=== PATIENT | male | born 1975 | race Hispanic/Latino ===

== ENCOUNTER 2017-07-23 06:05 | Emergency (ER) | payer SELFPAY ==
[2017-07-23] MEDS ORDERED: MORPHINE 4 MG/ML SYR ONE (06:35)
[2017-07-23] MEDS ORDERED: ONDANSETRON 4 MG/2 ML VIAL ONE (06:36)
[2017-07-23 06:46] LABS: Urine Blood NEGATIVE (NEG); Urine Glucose NEGATIVE (NEG); Urine Protein NEGATIVE (NEG)
[2017-07-23 06:48] LABS: Absolute Lymphocytes (CBC) 2.4 K/uL (0.7-4.9); Absolute Monocytes 0.9 K/uL (0.1-1.3); Absolute Neutrophil 5.2 K/uL (1.8-8.0); Basophils % 0.3 % (0-1.3); Eosinophils % 1.6 % (0-4.4); Lymphocytes % 28.1 % (15.3-44.8); MCH 30.9 pg (27.0-35.0); MCV 90.7 fL (80-100); MPV 6.7 fL (7.6-11.3); Monocytes % 10.1 % (3.3-12.3); RBC Red Blood Cell Count 5.18 M/uL (4.33-5.43)
[2017-07-23 07:00] LABS: Potassium 3.9 mEq/L (3.6-5.0)
[2017-07-23 07:06] LABS: Albumin 4.2 g/dL (3.2-5.5); Bilirubin Direct 0.1 mg/dL (0-0.2); Bilirubin Total 0.7 mg/dL (0.3-1.2); Protein, Total 8.2 g/dL (6.0-8.3)
--- NOTE | 2017-07-23 07:13 | RAD REPORT ---
EXAM DESCRIPTION: CT - Stone Protocol - 07/23/2017 6:48 am CLINICAL HISTORY: Bilateral back pain and flank pain. No preliminary report available at the time of this dictation. . COMPARISON: None. TECHNIQUE: Axial 5 mm thick images were obtained without oral or IV contrast. The [id number] span s the entirety of the system partially obscuring uppermost abdomen and lung bases. All CT scans are performed using dose optimization technique as appropriate and may include automated exposure control or mA/KV adjustment according to patient size. FINDINGS: No hydronephrosis of either kidney. No obstructing or nonobstructing calculi. No perinephr ic stranding is seen. No suspicious renal masses. Isodense masses and pyelonephritis are not excluded on a stone protocol CT scan. No urinary bladder suspicious finding. Prostate gland and seminal vesic les within normal limits. Imaged portions of the liver, spleen and pancreas show no suspicious findings on non-contrast imaging . No gallbladder or biliary tree abnormality identified. No significant adrenal finding. No gastric dilatation or wall thickening. No acute small bowel process seen. There is fecalized bowel content in the terminal ileum and in some distal small bowel loops. A large amount of stool is prese nt filling but not dilating the right-side of the colon. No acute colon process is identifiable. No m easurable diverticulosis. The abrupt transition between normal diameter and decompressed sigmoid colo n is believed to be a peristalsis artifact. A discrete mass is not seen at this site. No hernia, mass or bulky lymphadenopathy noted. No free air, free fluid or inflammatory stranding. No significant bony abnormality. Scarring and atelectasis changes are present in the lung bases. No pericardial effusion. IMPRESSION: No hydronephrosis, obstructing calculus or acute finding. Isodense masses and pyelonephritis are not excluded on stone protocol technique. Large amount of stool is present filling but not dilating the right-side of the colon. Fecalized dexter l content in the terminal ileum. This has a constipation appearance with no obstructing mass identifi ed. Full colon assessment is limited.
[2017-07-23 07:27] LABS: Urine Bacteria NONE SEEN /HPF (NONE SEEN); Urine Culture Reflex Order NOT NEEDED; Urine RBC <5 /HPF (NONE SEEN)
[2017-07-23] MEDS ORDERED: MAGNESIUM CITRATE 300 ML BOT ONE (07:32)
--- NOTE | 2017-07-23 07:56 | ER ---
Nurse's Notes [facility] Name: Arron Andujar Age: 41 yrs Sex: Male : 1975 Arrival Date: 07/23/2017 Time: 06:06 Bed 16 Private MD: Diagnosis: Low back pain;Constipation, unspecified Presentation: 07/23 06:17 Presenting complaint: Patient states: he is having back pain for approx 2 weeks which bb now is radiating to abdomen, pt has not had a bowel movement in 4 to 5 days also has hesitancy when urinating. Transition of care: patient was not received from another setting of care. Onset of symptoms was July 09, 2017. Initial Sepsis Screen: Does the patient meet any 2 criteria? No. Patient's initial sepsis screen is negative. Does the patient have a suspected source of infection? No. Patient's initial sepsis screen is negative. Care prior to arrival: None. 06:17 Method Of Arrival: Ambulatory bb 06:17 Acuity: MAGNO 3 bb Historical: - Allergies: 06:21 No Known Allergies; bb - Home Meds: 06:21 Ultracet Oral [Active]; bb - PMHx: 06:21 None; bb - PSHx: 06:21 Knee surgery; bb - Immunization history:: Adult Immunizations up to date. - Social history:: Smoking status: Patient/guardian denies using tobacco, Patient uses alcohol, occasionally. Patient/guardian denies using street drugs. Screenin:31 Abuse screen: Denies threats or abuse. Denies injuries from another. Nutritional ak1 screening: No deficits noted. Tuberculosis screening: No symptoms or risk factors identified. Fall Risk None identified. Assessment: 06:21 General: Appears uncomfortable, Behavior is cooperative, anxious. Pain: Complains of bs1 pain in right /left flank pain Pain radiates to right side. Neuro: Level of Consciousness is awake, alert, obeys commands, Oriented to person, place, time, situation, Appropriate for age Perforator Loader are equal bilaterally. Cardiovascular: Denies chest pain, shortness of breath, Heart tones S1 S2 present Capillary refill < 3 seconds Patient's skin is warm and dry. Respiratory: Airway is patent Trachea midline Respiratory effort is unlabored, Respiratory pattern is regular, symmetrical, Breath sounds are clear bilaterally. GI: Abdomen is round distended, Last BM was July 19, 2017. Bowel sounds present X 4 quads. Abdomen is tender to palpation in posterior aspect of left lateral abdomen, posterior aspect of right lateral abdomen, right lower quadrant and left lower quadrant Reports nausea, Patient currently denies diarrhea. : Reports inability to void. EENT: No deficits noted. No signs and/or symptoms were reported regarding the EENT system. Derm: Skin is intact, Skin is pink, warm \T\ dry. Musculoskeletal: Circulation, motion, and sensation intact. Capillary refill < 3 seconds, Range of motion: intact in all extremities. 06:57 Reassessment: Report given to BRENT moe. bs1 07:05 Reassessment: Patient appears in no apparent distress at this time. Patient and/or sg family updated on plan of care and expected duration. Pain level reassessed. Patient is alert, oriented x 3, equal unlabored respirations, skin warm/dry/pink. Patient states feeling better. Vital Signs: 06:21 BP 130 / 97; Pulse 94; Resp 22 S; Temp 99.4(O); Pulse Ox 97% on R/A; Weight 90.72 kg bb (R); Height 5 ft. 9 in. (175.26 cm) (R); Pain 9/10; 06:41 BP 121 / 98; Pulse 88; Resp 20; Pulse Ox 96% on R/A; ak1 07:52 BP 123 / 80; Pulse 78; Resp 16; Pulse Ox 96% on R/A; sg 06:21 Body Mass Index 29.53 (90.72 kg, 175.26 cm) ED Course: 06:06 Patient arrived in ED. am2 06:12 Asif Mason [facility]. cp 06:12 Demario Renteria MD is Attending Physician. cp 06:20 Triage completed. bb 06:20 Inserted saline lock: 22 gauge in left antecubital area, using aseptic technique. bs1 06:21 Arm band placed on Patient placed in an exam room, on a stretcher, on pulse oximetry. bb Family accompanied patient. 06:29 Bladder scan completed. 166, repeated x4, Same Results. Informed PA Page. bs1 06:31 Patient has correct armband on for positive identification. Placed in gown. Bed in low ak1 position. Call light in reach. Side rails up X 1. Adult w/ patient. Pulse ox on. NIBP on. 06:33 Initial lab(s) drawn, by me, sent to lab. bs1 06:34 No provider procedures requiring assistance completed. bs1 06:48 CT Stone Protocol In Process Unspecified. EDMS 06:58 Radiology exam delayed due to lab results not completed at this time. (BUN/Creatinine). 2 07:02 Yash Alanis, RN is Primary Nurse. sg 07:06 Awaiting radiology results. sg Administered Medications: 06:39 Drug: morphine 4 mg Route: IVP; Site: left antecubital; ak1 06:42 Follow up: Response: No adverse reaction; Pain is decreased ak1 06:39 Drug: Zofran 4 mg Route: IVP; Site: left antecubital; ak1 06:42 Follow up: Response: No adverse reaction ak1 07:33 Drug: Magnesium Citrate Liquid 300 ml Route: PO; sg 08:00 Follow up: Response: No adverse reaction sg 07:58 Drug: TORadol 30 mg Route: IVP; Site: left antecubital; sg 08:30 Follow up: Response: No adverse reaction; Pain is decreased sg Output: 06:10 Urine: 40ml (Voided); Total: 40ml. ak1 Outcome: 07:55 Discharge ordered by . cp 08:22 Patient left the ED. sg Signatures: Dispatcher [employer] EDMS Yash Alanis, RN Cece Paulson RN RN bb Krenek, Amber, RN RN ak1 Asif Mason PA PA Gabriela Soliz Radha Julien 2 Shagufta Vanegas RN RN bs1
[2017-07-23] MEDS ORDERED: KETOROLAC 30 MG/ML INJ ONE (07:57)
--- NOTE | 2017-07-23 07:57 | EDPHYS ---
Physician Documentation [facility] Name: Arron Andujar Age: 41 yrs Sex: Male : 1975 Arrival Date: 07/23/2017 Time: 06:06 Bed 16 Private MD: ED Physician Demario Renteria HPI: 07/23 06:25 This 41 yrs old Male presents to ER via Ambulatory with complaints of cp Abdominal Pain. 06:25 The patient presents with abdominal pain in the lower abdomen. cp 06:25 Onset: The symptoms/episode began/occurred 5 day(s) ago. cp 06:25 The symptoms do not radiate. Associated signs and symptoms: Pertinent positives: low cp back pain times 2 weeks. Modifying factors: the symptoms are aggravated by movement. Historical: - Allergies: 06:21 No Known Allergies; bb - Home Meds: 06:21 Ultracet Oral [Active]; bb - PMHx: 06:21 None; bb - PSHx: 06:21 Knee surgery; bb - Immunization history:: Adult Immunizations up to date. - Social history:: Smoking status: Patient/guardian denies using tobacco, Patient uses alcohol, occasionally. Patient/guardian denies using street drugs. ROS: 06:30 Constitutional: Negative for body aches, chills, fever, poor PO intake. cp 06:30 Eyes: Negative for injury, pain, redness, and discharge. cp 06:30 ENT: Negative for drainage from ear(s), ear pain, sore throat, difficulty swallowing, difficulty handling secretions. 06:30 Neck: Negative for pain with movement, pain at rest, stiffness, tenderness, bony tenderness. 06:30 Cardiovascular: Negative for chest pain, edema, palpitations. 06:30 Respiratory: Negative for cough, shortness of breath, wheezing. 06:30 Abdomen/GI: Positive for abdominal pain, nausea, constipation, of the right lower quadrant and left lower quadrant, Negative for vomiting, diarrhea, black/tarry stool, rectal bleeding. 06:30 Back: Positive for pain at rest, pain with movement, of the low back area. 06:30 : Negative for testicular pain 06:30 Skin: Negative for cellulitis, rash. 06:30 Neuro: Negative for altered mental status, dizziness, headache, numbness, syncope, near syncope, weakness. 06:30 All other systems are negative. Exam: 06:38 Constitutional: The patient appears in no acute distress, alert, awake, non-toxic, well cp developed, well nourished, diaphoretic, uncomfortable. 06:38 Head/Face: Normocephalic, atraumatic. Eyes: Pupils equal round and reactive to light, cp extra-ocular motions intact. Lids and lashes normal. Conjunctiva and sclera are non-icteric and not injected. Cornea within normal limits. Periorbital areas with no swelling, redness, or edema. 06:38 ENT: External ear(s): are unremarkable, Nose: is normal, Mouth: Lips: dry, Oral mucosa: moist, Posterior pharynx: is normal, airway is patent, no erythema, no exudate. 06:38 Neck: External neck: is normal, ROM/movement: is normal, is supple, without pain, no range of motions limitations, no meningismus, no nuchal rigidity. 06:38 Chest/axilla: Inspection: normal, Palpation: is normal, no crepitus, no tenderness. 06:38 Cardiovascular: Rate: normal, Rhythm: regular, Heart sounds: murmur, not appreciated, rub, not appreciated, gallop, not appreciated, Edema: is not appreciated, JVD: is not appreciated. 06:38 Respiratory: the patient does not display signs of respiratory distress, Respirations: normal, no use of accessory muscles, no retractions, no splinting, no tachypnea, labored breathing, is not present, Breath sounds: are clear throughout, no decreased breath sounds, no stridor, no wheezing. 06:38 Abdomen/GI: Inspection: distension, that is mild, Bowel sounds: active, all quadrants, Palpation: soft, in all quadrants, mild abdominal tenderness, in the right lower quadrant and left lower quadrant, rebound tenderness, is not appreciated, voluntary guarding, is elicited in the right lower quadrant and left lower quadrant. 06:38 Back: pain, that is moderate, of the low back area, ROM is painful, with all movement. 06:38 Skin: cellulitis, is not appreciated, no rash present. 06:40 ECG was reviewed by the Attending Physician. cp Vital Signs: 06:21 BP 130 / 97; Pulse 94; Resp 22 S; Temp 99.4(O); Pulse Ox 97% on R/A; Weight 90.72 kg bb (R); Height 5 ft. 9 in. (175.26 cm) (R); Pain 9/10; 06:41 BP 121 / 98; Pulse 88; Resp 20; Pulse Ox 96% on R/A; ak1 07:52 BP 123 / 80; Pulse 78; Resp 16; Pulse Ox 96% on R/A; sg 06:21 Body Mass Index 29.53 (90.72 kg, 175.26 cm) bb MDM: 06:12 Patient medically screened. cp 07:00 Differential diagnosis: cholecystitis, Cholelithiasis, diverticulitis, gastritis, cp pancreatitis, Pyelonephritis, Ureterolithiasis, urinary tract infection. 07:45 Data reviewed: vital signs, nurses notes, lab test result(s), EKG, radiologic studies, cp CT scan. 07:45 Test interpretation: by ED physician or midlevel provider: ECG. cp 07:55 Counseling: I had a detailed discussion with the patient and/or guardian regarding: the cp historical points, exam findings, and any diagnostic results supporting the discharge/admit diagnosis, lab results, radiology results, to return to the emergency department if symptoms worsen or persist or if there are any questions or concerns that arise at home. 07:55 Response to treatment: the patient's symptoms have mildly improved after treatment, cp VSS. Pain improved. Will discharge to home for continued monitoring. 07/23 06:28 Order name: Amylase, Serum; Complete Time: 07:36 cp 07/23 06:28 Order name: Basic Metabolic Panel; Complete Time: 07:36 cp 07/23 07:16 Interpretation: Normal except: CL 97; GFR 77. cp 07/23 06:28 Order name: CBC with Diff; Complete Time: 06:59 cp 07/23 06:59 Interpretation: Normal except: MPV 6.7. cp 07/23 06:28 Order name: Creatinine for Radiology; Complete Time: 06:59 cp 07/23 07:38 Interpretation: Reviewed. cp 07/23 06:28 Order name: Hepatic Function; Complete Time: 07:36 cp 07/23 07:17 Interpretation: Normal except: SGPT 77; GLOB 4.0. cp 07/23 06:28 Order name: Lipase; Complete Time: 07:36 cp 07/23 07:37 Interpretation: LIP 25; Reviewed. cp 07/23 06:28 Order name: Urine Microscopic Only; Complete Time: 07:36 cp 07/23 07:37 Interpretation: Reviewed. 07/23 06:31 Order name: CT Stone Protocol; Complete Time: 07:15 cp 07/23 06:33 Order name: Urine Dipstick--Ancillary (enter results); Complete Time: 06:59 mt 07/23 07:39 Interpretation: Reviewed. 07/23 06:47 Order name: Troponin I; Complete Time: 07:36 cp 07/23 07:37 Interpretation: TROP < 0.03; Reviewed. 07/23 06:28 Order name: IV Saline Lock; Complete Time: 06:33 07/23 06:28 Order name: Labs collected and sent; Complete Time: 06:33 07/23 06:28 Order name: Urine Dipstick-Ancillary (obtain specimen); Complete Time: 06:33 07/23 06:28 Order name: Bladder Scanner: pre and post void; Complete Time: 06:33 07/23 06:28 Order name: EKG; Complete Time: 06:28 07/23 06:28 Order name: EKG - Nurse/Tech; Complete Time: 06:42 cp EC:40 Rate is 88 beats/min. Rhythm is regular. MO interval is normal. QRS interval is normal. cp QT interval is normal. T waves are Inverted in lead aVF. No ST changes noted. Interpreted by me. Reviewed by me. Administered Medications: 06:39 Drug: morphine 4 mg Route: IVP; Site: left antecubital; ak1 06:42 Follow up: Response: No adverse reaction; Pain is decreased ak1 06:39 Drug: Zofran 4 mg Route: IVP; Site: left antecubital; ak1 06:42 Follow up: Response: No adverse reaction ak1 07:33 Drug: Magnesium Citrate Liquid 300 ml Route: PO; sg 08:00 Follow up: Response: No adverse reaction sg 07:58 Drug: TORadol 30 mg Route: IVP; Site: left antecubital; sg 08:30 Follow up: Response: No adverse reaction; Pain is decreased sg Disposition: 07/23/17 07:55 Discharged to Home. Impression: Low back pain, Constipation, unspecified. - Condition is Stable. - Discharge Instructions: Back Pain, Adult, Constipation, Adult, Back Exercises, [id number]. - Prescriptions for Colace 100 mg Oral Capsule - take 1 tablet by ORAL route every 12 hours; 30 tablet. - Work release form, Medication Reconciliation Form, Thank You Letter, Antibiotic Education, Prescription Opioid Use form. - Follow up: Private Physician; When: 1 - 2 days. - Problem is new. - Symptoms have improved. Addendum: 07/26/2017 11:21 Co-signature as Attending Physician, Demario Renteria MD. g s Signatures: Dispatcher [employer] [facility] Yash Alanis RN RN sg Cece Khan RN RN bb Kim Edgar RN RN ak1 Asif Mason, PA PA Demario Washington MD MD gs Corrections: (The following items were deleted from the chart) 07/23 07:03 06:47 Abdomen Pelvis W Con+CT.RAD.BRZ ordered. [facility] 08:22 07:55 07/23/2017 07:55 Discharged to Home. Impression: Low back pain; Constipation, sg unspecified. Condition is Stable. Forms are Medication Reconciliation Form, Thank You Letter, Antibiotic Education, Prescription Opioid Use. Follow up: Private Physician; When: 1 - 2 days. Problem is new. Symptoms have improved. cp
--- NOTE | 2017-07-23 08:47 | EKG ---
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
== END 2017-07-23 08:22 | disposition home or self-care (01) ==
LOC: ER 06:05
DX: K59.00 Constipation, unspecified (principal)
CPT/HCPCS: 36415; 74176; 76377; 80048; 80076; 81003; 81015; 82150; 83690; 84484; 85025; 93005; 96374; 96375; 99284; J2405

== ENCOUNTER 2017-07-23 17:26 | Observation (INO) | payer SELFPAY ==
[2017-07-23 19:01] LABS: Absolute Monocytes 0.9 K/uL (0.1-1.3); Absolute Neutrophil 9.1 K/uL (1.8-8.0); Basophils % 0.3 % (0-1.3); Eosinophils % 0.5 % (0-4.4); Hematocrit 44.1 % (39.6-49.0); Lymphocytes % 9.2 % (15.3-44.8); MCV 89.5 fL (80-100); MPV 6.7 fL (7.6-11.3); Monocytes % 8.1 % (3.3-12.3); RBC Red Blood Cell Count 4.93 M/uL (4.33-5.43)
[2017-07-23 19:08] LABS: Potassium 4.2 mEq/L (3.6-5.0)
[2017-07-23] MEDS ORDERED: NA CHLORIDE 0.9% 1,000 ML ONE (19:09)
[2017-07-23] MEDS ORDERED: LACTULOSE 20 GM/30 ML UCUP ONE (19:09)
[2017-07-23] MEDS ORDERED: METHOCARBAMOL 1,000 MG/10 ML VIAL IV ONE (19:09)
[2017-07-23] MEDS ORDERED: NA CHLORIDE 0.9% 100 ML IV ONE (19:10)
[2017-07-23 19:16] LABS: Albumin 3.9 g/dL (3.2-5.5); Bilirubin Direct 0.2 mg/dL (0-0.2); Bilirubin Total 0.7 mg/dL (0.3-1.2); Protein, Total 7.6 g/dL (6.0-8.3)
[2017-07-23] MEDS ORDERED: ONDANSETRON 4 MG/2 ML VIAL ONE (19:53)
[2017-07-23] MEDS ORDERED: MORPHINE 4 MG/ML SYR ONE (19:53)
[2017-07-23 20:27] LABS: Urine Amorphous Sediment 1+ /HPF (NONE SEEN); Urine Bacteria NONE SEEN /HPF (NONE SEEN); Urine Culture Reflex Order NOT NEEDED; Urine RBC <5 /HPF (NONE SEEN)
[2017-07-23 20:45] LABS: Urine Blood NEGATIVE (NEG); Urine Glucose NEGATIVE (NEG); Urine Protein NEGATIVE (NEG); Urine Specific Gravity 1.015 (1.005-1.030); Urine pH 6.5 (5.0-7.0)
[2017-07-23] MEDS ORDERED: FLEET ENEMA ADULT PR ONE ×2 (21:27→21:55)
--- NOTE | 2017-07-23 21:27 | RAD REPORT ---
EXAM DESCRIPTION: CT - Abdomen Pelvis W Contrast - 07/23/2017 9:11 pm CLINICAL HISTORY: Abdominal pain./abdominal distention COMPARISON: July 23, 2017 TECHNIQUE: Computed axial tomography of the abdomen and pelvis was obtained. 100 cc Isovue-300 is ad ministered intravenously. Oral contrast was given. All CT scans are performed using dose optimization technique as appropriate and may include automated exposure control or mA/KV adjustment according to patient size. FINDINGS: Mild fatty infiltration liver seen. Spleen, pancreas, adrenals and kidneys appear unremarkable. The distal sigmoid is decompressed. Mild prominence of the remainder the sigmoid, ascending and trans verse colon is seen. The cecum measures 7.3 centimeters. There is no evidence of diverticulitis. IMPRESSION: Decompression of the distal sigmoid colon with mild prominence of the remainder the col on. A discrete mass is not seen. This probably is related to an ileus or spasm. However, it is recomm ended that the patient have followup abdominal plain film series to reassess the colonic bowel gas pa ttern.
--- NOTE | 2017-07-23 22:03 | ER ---
Nurse's Notes [facility] Name: Arron Andujar Age: 41 yrs Sex: Male : 1975 Arrival Date: 07/23/2017 Time: 17:32 Bed 30 Private MD: Diagnosis: Ileus, unspecified;Constipation, unspecified;Low back pain Presentation: 07/23 17:51 Presenting complaint: Patient states: Seen here this AM for same complaint, DX with aj constipation. Reports taking magnesium citrate and using gylcerin suppositories with no relief. Patient has been taking Ultracet for 10 days for low back pain. Transition of care: patient was not received from another setting of care. Onset of symptoms was July 17, 2017. Care prior to arrival: None. 17:51 Method Of Arrival: Ambulatory 17:51 Acuity: MAGNO 3 iw 19:00 Initial Sepsis Screen: Does the patient meet any 2 criteria? HR > 90 bpm. No. Patient's rk2 initial sepsis screen is negative. Does the patient have a suspected source of infection? Yes: Acute abdominal pain. Triage Assessment: 17:53 General: Appears in no apparent distress. uncomfortable, Behavior is calm, cooperative, aj appropriate for age. Pain: Complains of pain in low back area. Neuro: Level of Consciousness is awake, alert, obeys commands, Oriented to person, place, time, situation, Appropriate for age. Respiratory: Airway is patent Respiratory effort is even, unlabored, Respiratory pattern is regular, symmetrical. GI: Reports lower abdominal pain, upper abdominal pain, constipation. Derm: Skin is intact, is healthy with good turgor, Skin is pink, warm \T\ dry. normal. Historical: - Allergies: 17:53 No Known Allergies; aj - Home Meds: 17:53 Ultracet Oral [Active]; aj - PMHx: 17:53 None; aj - PSHx: 17:53 Knee surgery; aj - Immunization history:: Adult Immunizations up to date. - Social history:: Smoking status: Patient/guardian denies using tobacco. Screenin:45 Abuse screen: Denies threats or abuse. rk2 18:45 Nutritional screening: No deficits noted. Tuberculosis screening: No symptoms or risk rk2 factors identified. Fall Risk None identified. Assessment: 18:45 General: Appears in no apparent distress. uncomfortable, well developed, well rk2 nourished, Behavior is calm, cooperative. 18:45 Pain: Complains of pain in abdomen and back and low back area. Neuro: Level of rk2 Consciousness is alert, obeys commands, Oriented to person, place, time, situation. Respiratory: Airway is patent Respiratory effort is even, unlabored, Respiratory pattern is regular, symmetrical. GI: Abdomen is distended, Bowel sounds firm. Derm: Skin is pink, warm \T\ dry. 19:45 Reassessment: No changes from previously documented assessment. Patient and/or family rk2 updated on plan of care and expected duration. Pain level reassessed. Pt. resting in room \T\ this time, appears to be in no obvious distress... 21:56 Reassessment: Second enema given... first enema pt. had very little output. rk2 23:00 Reassessment: No changes from previously documented assessment. Patient and/or family rk2 updated on plan of care and expected duration. Pain level reassessed. \T\ bedside... no needs voiced \T\ this time. 07/24 00:49 Reassessment: report called to Felecia KENNEDY for room 203. bb Vital Signs: 07/23 17:53 BP 142 / 88; Pulse 106; Resp 18; Temp 98.2; Pulse Ox 94% on R/A; Weight 92.99 kg; aj Height 5 ft. 9 in. (175.26 cm); Pain 10/10; 20:13 BP 119 / 76; Pulse 70; Resp 16; Pulse Ox 97% on R/A; Pain 5/10; rk2 22:30 BP 124 / 90; Pulse 86; Resp 17; Pulse Ox 95% ; rk2 23:30 BP 119 / 86; Pulse 89; Resp 17; Pulse Ox 96% on R/A; rk2 07/24 00:03 BP 128 / 85; Pulse 77; Resp 17; Pulse Ox 97% on R/A; rk2 07/23 17:53 Body Mass Index 30.27 (92.99 kg, 175.26 cm) aj ED Course: 07/23 17:32 Patient arrived in ED. mr 17:53 Triage completed. aj 17:53 Arm band placed on right wrist. Patient placed in waiting room, Patient notified of aj wait time. 18:02 Tamara Painting [facility]. ka 18:02 Elton Fernando MD is Attending Physician. ka 18:38 Karma Larry RN is Primary Nurse. rk2 19:00 Patient has correct armband on for positive identification. Bed in low position. Call rk2 light in reach. 21:[address] via wheelchair. nj 21:12 CT Abd/Pelvis - W/Contrast In Process Unspecified. EDMS 21:12 CT completed. Patient tolerated procedure well. Patient moved back from [place]. nj 22:03 Sayra Martinez MD is Hospitalizing Provider. [facility] 07/24 01:05 No provider procedures requiring assistance completed. Patient admitted, IV remains in rk2 place. Administered Medications: 07/23 19:17 Drug: Lactulose 20 grams Volume: 30 ml; Route: PO; rk2 22:26 Follow up: Response: No adverse reaction rk2 19:18 Drug: NS 0.9% 1000 ml Route: IV; Rate: 1 bolus; Site: right antecubital; rk2 20:00 Follow up: Response: No adverse reaction; IV Status: Completed infusion rk2 19:18 Drug: Robaxin 1 grams Route: IVPB; Infused Over: 1 hrs; Site: right antecubital; rk2 20:20 Follow up: Response: No adverse reaction; IV Status: Completed infusion rk2 19:58 Drug: morphine 4 mg Route: IVP; Site: right antecubital; rk2 22:26 Follow up: Response: No adverse reaction; Pain is decreased rk2 19:58 Drug: Zofran 4 mg Route: IVP; Site: right antecubital; rk2 22:25 Follow up: Response: No adverse reaction rk2 21:32 Drug: Fleet Enema 133 ml Route: DE; rk2 22:25 Follow up: Response: No adverse reaction rk2 Outcome: 22:03 Decision to Hospitalize by Provider. [facility] 07/24 00:49 Admitted to Tele accompanied by tech, room 203, with chart, Report called to Felecia KENNEDY bb 01:05 Condition: good rk2 01:05 Instructed on the need for admit. 01:07 Patient left the ED. rk2 Signatures: Dispatcher [employer] EDMS Gabriela Santacruz RN RN aj Vern, Katherine, FNP [employer] Payal Deshpande mr Cece Khan, RN RN Kely Tse RN RN iw Woodrow King Rhonda, RN RN rk2 Corrections: (The following items were deleted from the chart) 07/23 18:03 17:51 Acuity: MAGNO 4 lucila bradley
--- NOTE | 2017-07-23 22:04 | EDPHYS ---
Physician Documentation [facility] Name: Arron Andujar Age: 41 yrs Sex: Male : 1975 Arrival Date: 07/23/2017 Time: 17:32 Bed 30 Private MD: ED Physician Elton Fernando HPI: 07/23 18:02 This 41 yrs old Male presents to ER via Ambulatory with complaints of kav Abdominal Pain. 19:46 The patient presents with abdominal pain that is diffuse, abdominal distention. The kav symptoms do not radiate. Associated signs and symptoms: Pertinent positives: back pain. The symptoms are described as achy. Modifying factors: The symptoms are alleviated by nothing, the symptoms are aggravated by movement. Severity of pain: At its worst the pain was moderate just prior to arrival. The patient has been recently seen at the [facility] Emergency Department, today, a couple of weeks ago. patient recently seen in this er approximately 2 weeks ago for c/o back pain and again this morning for c/o abdominal pain and distension. pt reports no bm x 6 days. abdominal distension. reports drinking bottle of mag citrate with no results and continues to c/o lumbar pain. 21:39 Onset: The symptoms/episode began/occurred acutely, 6 day(s) ago. kav Historical: - Allergies: 17:53 No Known Allergies; aj - Home Meds: 17:53 Ultracet Oral [Active]; aj - PMHx: 17:53 None; aj - PSHx: 17:53 Knee surgery; aj - Immunization history:: Adult Immunizations up to date. - Social history:: Smoking status: Patient/guardian denies using tobacco. ROS: 19:49 Constitutional: Negative for fever, chills, and weight loss, Eyes: Negative for injury, kav pain, redness, and discharge, ENT: Negative for injury, pain, and discharge, Neck: Negative for injury, pain, and swelling, Cardiovascular: Negative for chest pain, palpitations, and edema, Respiratory: Negative for shortness of breath, cough, wheezing, and pleuritic chest pain, : Negative for injury, bleeding, discharge, and swelling, MS/Extremity: Negative for injury and deformity, Skin: Negative for injury, rash, and discoloration, Neuro: Negative for headache, weakness, numbness, tingling, and seizure, Psych: Negative for depression, anxiety, suicide ideation, homicidal ideation, and hallucinations, Allergy/Immunology: Negative for hives, rash, and allergies, Endocrine: Negative for neck swelling, polydipsia, polyuria, polyphagia, and marked weight changes, Hematologic/Lymphatic: Negative for swollen nodes, abnormal bleeding, and unusual bruising. 19:49 Abdomen/GI: Positive for abdominal pain, constipation, Negative for nausea, vomiting, and diarrhea. 19:49 Back: Positive for decreased range of motion, pain at rest, pain with movement. Exam: 19:49 Constitutional: This is a well developed, well nourished patient who is awake, alert, kav and in no acute distress. Head/Face: Normocephalic, atraumatic. Eyes: Pupils equal round and reactive to light, extra-ocular motions intact. Lids and lashes normal. Conjunctiva and sclera are non-icteric and not injected. Cornea within normal limits. Periorbital areas with no swelling, redness, or edema. ENT: Nares patent. No nasal discharge, no septal abnormalities noted. Tympanic membranes are normal and external auditory canals are clear. Oropharynx with no redness, swelling, or masses, exudates, or evidence of obstruction, uvula midline. Mucous membranes moist. Neck: Trachea midline, no thyromegaly or masses palpated, and no cervical lymphadenopathy. Supple, full range of motion without nuchal rigidity, or vertebral point tenderness. No Meningismus. Chest/axilla: Normal chest wall appearance and motion. Nontender with no deformity. No lesions are appreciated. Cardiovascular: Regular rate and rhythm with a normal S1 and S2. No gallops, murmurs, or rubs. Normal PMI, no JVD. No pulse deficits. Respiratory: Lungs have equal breath sounds bilaterally, clear to auscultation and percussion. No rales, rhonchi or wheezes noted. No increased work of breathing, no retractions or nasal flaring. Skin: Warm, dry with normal turgor. Normal color with no rashes, no lesions, and no evidence of cellulitis. MS/ Extremity: Pulses equal, no cyanosis. Neurovascular intact. Full, normal range of motion. Neuro: Awake and alert, GCS 15, oriented to person, place, time, and situation. Cranial nerves II-XII grossly intact. Motor strength 5/5 in all extremities. Sensory grossly intact. Cerebellar exam normal. Normal gait. Psych: Awake, alert, with orientation to person, place and time. Behavior, mood, and affect are within normal limits. 19:49 Abdomen/GI: Inspection: distension, that is moderate, Bowel sounds: diminished, Palpation: soft, in all quadrants, mild abdominal tenderness, in all quadrants. 19:49 Back: pain, that is moderate, ROM is painful, with all movement, decreased, CVA kav tenderness, is absent, vertebral tenderness, is not appreciated, muscle spasm, is not present, Straight leg raises: of both lower extremities does not illicit pain. Vital Signs: 17:53 BP 142 / 88; Pulse 106; Resp 18; Temp 98.2; Pulse Ox 94% on R/A; Weight 92.99 kg; aj Height 5 ft. 9 in. (175.26 cm); Pain 10/10; 20:13 BP 119 / 76; Pulse 70; Resp 16; Pulse Ox 97% on R/A; Pain 5/10; rk2 22:30 BP 124 / 90; Pulse 86; Resp 17; Pulse Ox 95% ; rk2 23:30 BP 119 / 86; Pulse 89; Resp 17; Pulse Ox 96% on R/A; rk2 07/24 00:03 BP 128 / 85; Pulse 77; Resp 17; Pulse Ox 97% on R/A; rk2 07/23 17:53 Body Mass Index 30.27 (92.99 kg, 175.26 cm) aj MDM: 07/23 18:32 Medical screening is not applicable. [facility] 22:03 Data reviewed: vital signs, nurses notes, lab test result(s), radiologic studies, CT ka scan. 07/23 18:33 Order name: Amylase, Serum; Complete Time: 20:57 [facility] 07/23 20:58 Interpretation: Within normal limits. [facility] 07/23 18:33 Order name: Basic Metabolic Panel; Complete Time: 20:57 [facility] 07/23 20:57 Interpretation: NA 134; GLUC 136; CL 97; GFR 77. [facility] 07/23 18:33 Order name: CBC with Diff; Complete Time: 20:57 [facility] 07/23 20:57 Interpretation: Abnormal: WBC 11.1; MPV 6.7; LARS% 81.9; LYM% 9.2; NEUT A 9.1. [facility] 07/23 18:33 Order name: Creatinine for Radiology; Complete Time: 20:56 [facility] 07/23 20:56 Interpretation: Within normal limits. [facility] 07/23 18:33 Order name: Hepatic Function; Complete Time: 20:57 [facility] 07/23 20:57 Interpretation: Abnormal: SGOT 106; SGPT 122; ALK 140; GLOB 3.7. [facility] 07/23 18:33 Order name: Lipase; Complete Time: 20:56 [facility] 07/23 20:56 Interpretation: Within normal limits. [facility] 07/23 18:33 Order name: Urine Microscopic Only; Complete Time: 20:56 [facility] 07/23 20:56 Interpretation: Within normal limits. [facility] 07/23 18:49 Order name: CT Abd/Pelvis - W/Contrast; Complete Time: 21:30 [facility] 07/23 21:33 Interpretation: Ileus. [facility] 07/23 20:23 Order name: Urine Dipstick--Ancillary (enter results); Complete Time: 20:56 [facility] 07/23 20:56 Interpretation: Within normal limits. [facility] 07/23 18:33 Order name: IV Saline Lock; Complete Time: 21:52 [facility] 07/23 18:33 Order name: Labs collected and sent; Complete Time: 21:52 [facility] 07/23 18:33 Order name: Urine Dipstick-Ancillary (obtain specimen); Complete Time: 21:52 kav Administered Medications: 19:17 Drug: Lactulose 20 grams Volume: 30 ml; Route: PO; rk2 22:26 Follow up: Response: No adverse reaction rk2 19:18 Drug: NS 0.9% 1000 ml Route: IV; Rate: 1 bolus; Site: right antecubital; rk2 20:00 Follow up: Response: No adverse reaction; IV Status: Completed infusion rk2 19:18 Drug: Robaxin 1 grams Route: IVPB; Infused Over: 1 hrs; Site: right antecubital; rk2 20:20 Follow up: Response: No adverse reaction; IV Status: Completed infusion rk2 19:58 Drug: morphine 4 mg Route: IVP; Site: right antecubital; rk2 22:26 Follow up: Response: No adverse reaction; Pain is decreased rk2 19:58 Drug: Zofran 4 mg Route: IVP; Site: right antecubital; rk2 22:25 Follow up: Response: No adverse reaction rk2 21:32 Drug: Fleet Enema 133 ml Route: SC; rk2 22:25 Follow up: Response: No adverse reaction rk2 Disposition: 07/24 22:30 Co-signature as Attending Physician, Elton Fernando MD I agree with the assessment and kdr plan of care. Disposition: 07/23/17 22:03 Hospitalization ordered by Sayra Martinez for Observation. Preliminary diagnosis are Ileus, unspecified, Constipation, unspecified, Low back pain. - Bed requested for Telemetry/MedSurg (observation). - Status is Observation. rk2 - Condition is Stable. - Problem is new. - Symptoms are unchanged. UTI on Admission? No Signatures: Dispatcher [employer] EDMS Brisa Alexander RN Gabriela Barahona RN Elton Abdullahi MD MD kdr Vern, Katherine, GUARD RAIL INSTALLER GUARD RAIL INSTALLER Karma Kumar RN RN rk2 Corrections: (The following items were deleted from the chart) 07/23 21:40 19:46 Onset: The symptoms/episode began/occurred acutely, 2 day(s) ago, brent kennedy 07/24 00:17 07/23 22:03 Hospitalization Ordered by Sayra Martinez MD for Observation. Preliminary kl diagnosis is Ileus, unspecified; Constipation, unspecified; Low back pain. Bed requested for Telemetry/MedSurg (observation). Status is Observation. Condition is Stable. Problem is new. Symptoms are unchanged. UTI on Admission? No. [email or web address] 07/24 01:07 00:17 07/23/2017 22:03 Hospitalization Ordered by Sayra Martinez MD for Observation. rk2 Preliminary diagnosis is Ileus, unspecified; Constipation, unspecified; Low back pain. Bed requested for Telemetry/MedSurg (observation). Status is Observation. Condition is Stable. Problem is new. Symptoms are unchanged. UTI on Admission? No. kl
--- NOTE | 2017-07-23 23:36 | P.HP ---
Certification for Inpatient Patient admitted to: Observation With expected LOS: <2 Midnights Practitioner: I am a practitioner with admitting privileges, knowledge of patient current condition, hospital course, and medical plan of care. Services: Services provided to patient in accordance with Admission requirements found in Title 42 Section 412.3 of the Code of Federal Regulations Patient History Date of Service: 07/23/17 Reason for admission: ileus History of Present Illness: Mr Sher is a 41 years old male with quite benign past medical history. He state that about 4 days ago he was lifting a heavy TV and furniture. Subsequently he start feeling severe lower back pain. He was taking some non- narcotic pain medication, obtained from [place]. The paint did not resolved. He went to [place], was evaluated by a physician but not further work up was done. He was also complaining of constipation since the back pain start. Today, he came to the hospital in AM for evaluation. Work up including CT abdomen and lab work, was negative and he was discharged home. He came back this afternoon, because now has significant abdominal pain. New lab work shows now abnormal liver enzymes, CT abd/pelvis consistent with an ileus. During his stay in ED he has had several rounds of stool softener, without significant effect. No history of fever, chills, nausea or vomiting. Allergies No Known Allergies Allergy (Unverified 07/23/17 08:27) - Past Medical/Surgical History Past Medical History: Reviewed- Non-Contributory -: knee - Family History Family History: Reviewed- Non-Contributory - Social History Smoking Status: Never smoker Alcohol use: Yes CD- Drugs: No Caffeine use: Yes Place of Residence: Home Review of Systems 10-point ROS is otherwise unremarkable Physical Examination - Physical Exam General: Alert, In no apparent distress HEENT: Atraumatic, PERRLA, Mucous membr. moist/pink, EOMI, Sclerae nonicteric Neck: Supple, 2+ carotid pulse no bruit, No LAD, Without JVD or thyroid abnormality Respiratory: Clear to auscultation bilaterally, Normal air movement Cardiovascular: Regular rate/rhythm, Normal S1 S2 Gastrointestinal: Hypoactive, Tenderness (diffuse) Musculoskeletal: No tenderness Integumentary: No rashes Neurological: Normal speech, Normal strength at 5/5 x4 extr, Normal tone, Normal affect Lymphatics: No axilla or inguinal lymphadenopathy - Studies Laboratory Data (last 24 hrs) 07/23/17 18:45: Creatinine 1.05 07/23/17 18:45: WBC 11.1 H D, Hgb 15.3, Hct 44.1, Plt Count 250 07/23/17 18:45: Sodium 134 L, Potassium 4.2, BUN 20, Creatinine 1.05, Glucose 136 H, Total Bilirubin 0.7, AST 106 H, ALT 122 H, Alkaline Phosphatase 140 H, Amylase 54, Lipase 25 Assessment and Plan - Problems (Diagnosis) (1) Constipation Current Visit: Yes Status: Acute Qualifiers: Constipation type: unspecified constipation type Qualified Code(s): K59.00 - Constipation, unspecified (2) Ileus Current Visit: Yes Status: Acute (3) Lower back pain Current Visit: Yes Status: Acute Qualifiers: Chronicity: acute Back pain laterality: midline Sciatica presence: with sciatica Sciatica laterality: sciatica laterality unspecified Qualified Code (s): M54.40 - Lumbago with sciatica, unspecified side - Plan The patient will be admitted to the hospital due to ileus in context of several days constipation. Will consult Dr Machado for evaluation and recommendations. Continue IV fluids, ambulation, bowel protocol. Order Lumbar spine MRI to address his back pain. Elevated liver enzymes might be secondary to volume depletion, no signs of acute biliary obstruction on recent CT abd/pelvis. Will repeat lab in AM. - Advance Directives Does patient have a Living Will: No Does patient have a Durable POA for Healthcare: No - Code Status/Comfort Care Code Status Assessed: Yes Code Status: Full Code
[2017-07-24] MEDS ORDERED: ACETAMINOPHEN 500 MG TAB PO PRN (00:40)
[2017-07-24] MEDS ORDERED: GOLYTELY 4000 ML PO SCH (00:40)
[2017-07-24] MEDS ORDERED: ONDANSETRON 4 MG/2 ML VIAL IV PRN (00:40)
[2017-07-24] MEDS: NA CHLORIDE 0.9% 1,000 ML IV SCH ×2 (01:25→09:28)
[2017-07-24 05:26] LABS: Absolute Lymphocytes (CBC) 1.9 K/uL (0.7-4.9); Absolute Neutrophil 5.6 K/uL (1.8-8.0); Basophils % 0.4 % (0-1.3); Eosinophils % 0.8 % (0-4.4); Hematocrit 40.9 % (39.6-49.0); Lymphocytes % 21.9 % (15.3-44.8); MCH 30.9 pg (27.0-35.0); MCV 90.1 fL (80-100); MPV 6.7 fL (7.6-11.3); Monocytes % 11.3 % (3.3-12.3); RBC Red Blood Cell Count 4.54 M/uL (4.33-5.43)
[2017-07-24] MEDS: KETOROLAC 30 MG/ML INJ IV PRN ×2 (05:38→12:29)
[2017-07-24 05:59] LABS: Albumin 3.4 g/dL (3.2-5.5); Bilirubin Total 0.7 mg/dL (0.3-1.2); Potassium 4.3 mEq/L (3.6-5.0); Protein, Total 6.4 g/dL (6.0-8.3)
[2017-07-24] MEDS: ENOXAPARIN 40 MG/0.4 ML SQ SCH ×2 (09:00→09:28)
--- NOTE | 2017-07-24 09:31 | RAD REPORT ---
EXAM DESCRIPTION: RAD - Abdomen Acute Series - 07/24/2017 7:56 am CLINICAL HISTORY: Ileus COMPARISON: Abdomen Pelvis W Contrast dated 07/23/2017; Stone Protocol dated 07/23/2017 FINDINGS: Gaseous distention of the colon and small bowel loops is present with stool also present. No bowel obstruction is present. No pneumoperitoneum is seen. No pathologic calcifications identified . IMPRESSION: Diffuse adynamic ileus is suspected. No pneumoperitoneum or bowel obstruction.
--- NOTE | 2017-07-24 10:14 | RAD REPORT ---
EXAM DESCRIPTION: MRI - Spine Lumbar W/Wo Cont CLINICAL HISTORY: Severe back pain, radiculopathy. COMPARISON: CT imaging 07/23/2017 FINDINGS: Abdomen row signal is seen involving the inferior aspect of the T12 vertebral body and the majority of the L1 vertebral body. There is diminished T1 marrow signal and subtle increased T2/IR s ignal surrounding a Schmorl's node seen along the left aspect vertebral body, in particular along the superior endplate of L1. There is mild post-contrast enhancement involving these regions of the lumb ar spine. The paraspinal tissues show edema and mild post-contrast enhancement at this level, particu larly along the left aspect measuring up to 3 mm. The conus medullaris terminates at a normal level. No thickening of the cauda equina or clumping of n erve roots seen. L1-2 level: No significant findings. L2-3 level: No significant findings. L3-4 level: Minimal posterior disc bulge mild facet and ligamentum flavum hypertrophy. L4-5 level: Mild to moderate posterior disc bulge is present with small annular fissure centrally. Mi ld facet and ligamentum flavum hypertrophy. L5-S1 level: Mild to moderate posterior disc bulge is present with a small left paracentral disc extr usion probably present with inferior migration. Mild facet and ligament flavum hypertrophy. Mild narr owing the anterior inferior aspects of both exit foramina seen. No additional areas of pathologic enhancement seen after contrast. IMPRESSION: Abnormal marrow signal seen involving T12 and L1 as described. Although nonspecific, the findings favor an acute Schmorl's node. Follow-up study would be suggested after resolution in 4 - 6 weeks of symptoms to ensure a more aggre ssive underlying process is not present. Mild to moderate lower lumbar spondylosis.
--- NOTE | 2017-07-24 13:26 | P.SSS ---
Patient History Date of Service: 07/24/17 Primary Care Provider: None Reason for admission: ileus History of Present Illness: Mr Sher is a 41 years old male with quite benign past medical history. He state that about 4 days ago he was lifting a heavy TV and furniture. Subsequently he start feeling severe lower back pain. He was taking some non- narcotic pain medication, obtained from [place]. The paint did not resolved. He went to [place], was evaluated by a physician but not further work up was done. He was also complaining of constipation since the back pain start. Today, he came to the hospital in AM for evaluation. Work up including CT abdomen and lab work, was negative and he was discharged home. He came back this afternoon, because now has significant abdominal pain. New lab work shows now abnormal liver enzymes, CT abd/pelvis consistent with an ileus. During his stay in ED he has had several rounds of stool softener, without significant effect. No history of fever, chills, nausea or vomiting. Allergies No Known Allergies Allergy (Unverified 07/23/17 08:27) Home Medications: Tramadol HCl/Acetaminophen [Ultracet Tablet] 1 each PO BID 07/24/17 - Past Medical/Surgical History Has patient received pneumonia vaccine in the past: No Diabetic: No -: knee -: left breast cyst - Family History Family History: Reviewed- Non-Contributory - Family History Mother -: Hypertension, Diabetes - Social History Smoking Status: Never smoker Alcohol use: Yes CD- Drugs: No Caffeine use: Yes Place of Residence: Home Review of Systems General: As per HPI Physical Examination - Vital Signs Temperature: 98.4 F Blood Pressure: 110/76 Pulse: 73 Respirations: 18 Pulse Ox (%): 97 - Physical Exam General: Alert, In no apparent distress, Oriented x3 HEENT: Atraumatic, PERRLA, Mucous membr. moist/pink, EOMI, Sclerae nonicteric Neck: Supple, 2+ carotid pulse no bruit, No LAD, Without JVD or thyroid abnormality Respiratory: Clear to auscultation bilaterally, Normal air movement Cardiovascular: Regular rate/rhythm, Normal S1 S2 Gastrointestinal: Normal bowel sounds, No tenderness Musculoskeletal: No tenderness Integumentary: No rashes Neurological: Normal gait, Normal speech, Normal strength at 5/5 x4 extr, Normal tone, Normal affect Lymphatics: No axilla or inguinal lymphadenopathy - Studies Laboratory Data (last 24 hrs) 07/23/17 18:45: Creatinine 1.05 07/23/17 18:45: WBC 11.1 H D, Hgb 15.3, Hct 44.1, Plt Count 250 07/23/17 18:45: Sodium 134 L, Potassium 4.2, BUN 20, Creatinine 1.05, Glucose 136 H, Total Bilirubin 0.7, AST 106 H, ALT 122 H, Alkaline Phosphatase 140 H, Amylase 54, Lipase 25 - Diagnosis (Problem(s)) (1) Constipation Onset Date: 07/24/17 Current Visit: Yes Status: Chronic Qualifiers: Constipation type: unspecified constipation type Qualified Code(s): K59.00 - Constipation, unspecified (2) Ileus Onset Date: 07/24/17 Current Visit: Yes Status: Acute (3) Lower back pain Onset Date: 07/24/17 Current Visit: Yes Status: Acute Qualifiers: Chronicity: acute Back pain laterality: midline Sciatica presence: with sciatica Sciatica laterality: sciatica laterality unspecified Qualified Code (s): M54.40 - Lumbago with sciatica, unspecified side Treatment Summary: Overall during the hospital stay patient remained stable The patient was initially admitted to the hospital for generalized lower back pain along with abdominal ileus. Patient has been on pain medications at home for his lower back pain that he started having after he lifted heavy boxes at home. Patient was also noticing that he had some muscle spasms as well. Patient had CT scan done here in the hospital which was negative for any acute findings. Patient also had an MRI of the back done here which was also negative for any acute findings however recommended 4-6 weeks of follow up with a repeated MRI. Patient's symptoms are most likely secondary to pain medication along with him proper body mechanics of while during work. Patient and family was educated extensively on high-fiber diet along with proper body mechanics and the need for is G. exercises before heavy lifting. Patient and family demonstrated understanding. Patient had a bowel movement here in the hospital and felt much better and thus was discharged home under stable condition. pt was also asked to follow up with his primary care doctor in about 1-2 weeks post discharge - Disposition Disposition: ROUTINE DISCHARGE Condition: GOOD Diet: Regular Activity: Ad curtis
== END 2017-07-24 14:21 | disposition home or self-care (01) ==
LOC: ER 17:26 → ERHOLD 22:15 → 2ND 07-24 00:21
PROVIDERS: ADMIT Internal Medicine; ATTEND Internal Medicine
DX: K59.00 Constipation, unspecified (principal); K56.7 Ileus, unspecified; M54.40 Lumbago with sciatica, unspecified side
CPT/HCPCS: 36415; 72158; 74022; 74177; 80048; 80053; 80076; 81003; 81015; 82150; 83690; 85025; 96365; 96375; 99285; A9577; G0378; J1650; J2405; J2800; J7030; Q9967